=== PATIENT | male | born 1950 | race Two or more races ===

== ENCOUNTER 2018-06-26 02:34 | Emergency (ER) | payer MEDICARE, OTHER ==
[2018-06-26] MEDS ORDERED: Clindamycin CAP* 150 MG PO ONE (03:34)
--- NOTE | 2018-06-26 03:34 | ED ---
Throat Pain/Nasal Congestion - HPI Summary HPI Summary: 68 year male presents with right sided jaw pain for the past 2 days. He states pain is intermittent. He states he has taken advil which helps for some time and then the pain returns. He states the pain is ache in nature. He states he had this many years and was follow-up by dentist for such. He states he is out of town currently and has 2 more days in town before he can return home and follow up with his dentist. He denies any fevers. He denies any swelling. No difficulty swallowing. No chest pain or shortness breath. He is diabetic. - History of Current Complaint Chief Complaint: EDDentalPain Time Seen by Provider: 06/26/18 03:18 - Allergies/Home Medications Allergies/Adverse Reactions: Allergies Allergy/AdvReac Type Severity Reaction Status Date / Time Penicillins Allergy Rash Verified 06/26/18 02:38 PMH/Surg Hx/FS Hx/Imm Hx Endocrine/Hematology History: Reports: Hx Diabetes Denies: Hx Anticoagulant Therapy Respiratory History: Denies: Hx Asthma Infectious Disease History: No Infectious Disease History: Reports: Traveled Outside the [place] in Last 30 Days - [place] - Family History Known Family History: Positive: Diabetes - Social History Alcohol Use: None Substance Use Type: Reports: None Smoking Status (MU): Never Smoked Tobacco Review of Systems Negative: Fever Positive: Dental Pain Negative: Chest Pain Negative: Shortness Of Breath All Other Systems Reviewed And Are Negative: Yes Physical Exam Triage Information Reviewed: Yes Vital Signs On Initial Exam: Initial Vitals Temp Pulse Resp BP Pulse Ox 97.3 F 70 16 188/85 97 06/26/18 02:36 06/26/18 02:36 06/26/18 02:36 06/26/18 02:36 06/26/18 02:36 Vital Signs Reviewed: Yes Appearance: Positive: Well-Appearing Skin: Positive: Warm, Dry Head/Face: Positive: Normal Head/Face Inspection Eyes: Positive: Normal, Conjunctiva Clear ENT: Positive: Normal ENT inspection, Pharynx normal, TMs normal Dental: Positive: Other - tenderness right side of mouth next to tmj. Negative : Percussion Tenderness @, Gross Decay/Caries @, Dental Fracture @, Abscess @ Respiratory/Lung Sounds: Positive: Clear to Auscultation, Breath Sounds Present Cardiovascular: Positive: Normal, RRR Musculoskeletal: Positive: Normal Neurological: Positive: Normal Psychiatric: Positive: Normal Diagnostics - Vital Signs Vital Signs Temp Pulse Resp BP Pulse Ox 06/26/18 02:36 97.3 F 70 16 188/85 97 - Laboratory Lab Statement: Any lab studies that have been ordered have been reviewed, and results considered in the medical decision making process. EENT Course/Dx - Course Course Of Treatment: 68 year male presents with right sided jaw pain for the past 2 days. He states pain is intermittent. He states he has taken advil which helps for some time and then the pain returns. He states the pain is ache in nature. He states he had this many years and was follow-up by dentist for such. He states he is out of town currently and has 2 more days in town before he can return home and follow up with his dentist. He denies any fevers. He denies any swelling. No difficulty swallowing. No chest pain or shortness breath. He is diabetic. On exam tenderness over right masseter muscle near TMJ. No abscess felt. No percussion tenderness. Will treat as potential infection with clindamycin. Suspect tmj vs dental infection. told to follow up with dentist. patient understand and agrees with plan. - Differential Diagnoses Differential Diagnoses: Dental Abscess, Dental Caries, TMJ Syndrome - Diagnoses Provider Diagnoses: Jaw pain Discharge - Sign-Out/Discharge Documenting (check all that apply): Patient Departure - Discharge Plan Condition: Good Disposition: HOME Prescriptions: Clindamycin Cap(NF) [Clindamycin Cap 300 mg Cap(NF)] 300 mg PO TID #20 cap Patient Education Materials: Toothache (ED) Referrals: No Primary Care Phys,NOPCP [Primary Care Provider] - Additional Instructions: Take clindamycin three times a day for 7 days Take ibuprofen or tyenlol every 6 hours for pain as needed Avoid hard, crunchy food until seen by dentist Return to ED if develop fever, shortness of breath, pain with eye movement or swelling around eye or any new or worsening symptoms - Billing Disposition and Condition Condition: GOOD Disposition: Home
[2018-06-26 03:59] VITALS: BP 158/88
== END 2018-06-26 03:57 | disposition home or self-care (01) ==
LOC: ED 02:34
DX: R68.84 Jaw pain (principal); E11.9 Type 2 diabetes mellitus without complications
CPT/HCPCS: 99282; A9270-GY